=== PATIENT | female | born 1980 | race Two or more races ===

== ENCOUNTER 2020-12-01 23:07 | Emergency (ER) | payer MEDICAID ==
[~2020-12-01] VITALS: Ht 144.8 cm; Wt 94.3 kg
--- NOTE | 2020-12-02 | NUR ---
pt bibself c/o bilateral ear pain. Pt aaox4 breathing evenly and unlabored. Pt attached to monitor and pox. MD at bedside for eval. Pt given blanket and call light within reach.
--- NOTE | 2020-12-02 00:15 | NUR ---
emt at bedside for ear irrigation
--- NOTE | 2020-12-02 02:30 | NUR ---
Patient discharged to home in stable condition. Written and verbal after care instructions given. Patient verbalizes understanding of instruction. Pt ambulatory with a steady gait
[2020-12-02 02:42] VITALS: BP 122/68
== END 2020-12-02 02:30 | disposition home or self-care (01) ==
LOC: ER 23:59
DX: H61.21 Impacted cerumen, right ear (principal); Z98.890 Other specified postprocedural states